=== PATIENT | female | born 1960 | race Caucasian/White ===

== ENCOUNTER 2016-03-27 20:10 | Emergency (ER) | payer BC ==
[~2016-03-27] VITALS: Ht 165.1 cm; Wt 73.9 kg
[2016-03-27 20:30] VITALS: BP 172/113; PULSE 69; RESP 18; TEMP 98.5; O2SAT 99
--- NOTE | 2016-03-27 20:30 | NUR ---
Patient to ER bed 08 to gown for evaluation. Side rails up. Report given to
--- NOTE | 2016-03-27 20:35 | NUR ---
Note undone in EDM - 03/27/16 at 2040 by GISSELLE Patient alert and oriented x 4. Came to ER due to hives which started at 1am. Per patient she is 8 weeks that is why she did not take any medications. Denies headache, vomiting or diarrhea. [place] nauseous at times and believes it is from being pregnnant. No acute distress or SOB at this time. Will continue to monitor.
[2016-03-27] MEDS ORDERED: LIDOCAINE/EPI 1% 1:100000 20 ML VIAL INJ ONE (21:00)
--- NOTE | 2016-03-27 21:20 | NUR ---
Dr Ferguson and Dr Carrasco at bedside examining patient
--- NOTE | 2016-03-27 21:20 | NUR ---
I&D Procedure done by Dr Luna way using sterile technique. Lidocaine 1% used. Wound packed with . Adaptic, 4x4 and cristian to wound. amt of bleeding noted. Wound care discussed w/ patient. Pt tolerated procedure well. Addendum: 03/27/16 at [email or web address] Carrasco inject 5cc Xylocaine with Epi, evacuated 100 cc clot, packed with surgical iodoform gauze and cover with dry pressure dressing. Consent signed by patient, procedure well tolerated.
[2016-03-27 22:20] VITALS: BP 160/93; PULSE 69; RESP 18; TEMP 98.5; O2SAT 99
--- NOTE | 2016-03-27 22:20 | NUR ---
Patient given written and verbal discharge instructions and verbalizes understanding. ER MD discussed with patient the results and treatment provided. Given copies of tests performed in ER. Patient in stable condition. ID arm band removed. Patient educated on pain management and to follow up with PMD. Pain Scale 0/10 . Opportunity for questions provided and answered.
== END 2016-03-27 22:20 | disposition home or self-care (01) ==
LOC: SED 20:10
DX: S20.222A Contusion of left back wall of thorax, initial encounter (principal); I10 Essential (primary) hypertension; X58.XXXA Exposure to other specified factors, initial encounter; Y93.89 Activity, other specified; Y99.8 Other external cause status; Y92.89 Other specified places as the place of occurrence of the external cause
CPT/HCPCS: 99283